=== PATIENT | female | born 1950 | race Caucasian/White ===

== ENCOUNTER → 2018-01-02 07:18 | Outpatient (CLI) | payer MEDICARE, SELFPAY ==
--- NOTE | 2018-01-02 08:30 | BRBX_PTH ---
PATIENT: CLAUDIO EDWARDS LOC: [facility] U#:[id number] AGE/SX: 75/F ROOM: RE01/02/[address]: Dr. Allen Dumont MD : 1950 BED: DIS: SPEC #: [id number] RECD: 01/02/18 11:38 STATUS: SHIRA MOON #: [id number] TAMMY: 01/02/18 08:[address]: Allen Dumont DEPT: SURGICAL PATHOLOGY RECD BY: Allen Min ENTERED: 01/02/18 12:52 SP TYPE: BREAST BX OTHR DR: Dr. Elaina Carvajal MD Tissues: Right breast, NOS Procedures: Surgery Specimen Level IV HEADER OPERATION: Right breast stereotactic needle core biopsy PRE-OP DIAGNOSIS: 11 o?clock microcalcifications TISSUE SUBMITTED: Right breast MICROSCOPIC DIAGNOSIS Right breast, stereotactic needle core biopsy: Fragments of fibroadipose tissue with focal fibrosis and dystrophic calcification. A minute fragment of skin, no pathologic diagnosis. Glandular breast tissue is not identified in the submitted specimen. ÁLVARO:bella 01/03/18 COMMENT Correlation with clinical, radiologic findings and appropriate follow up are necessary. 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 MICROSCOPIC DESCRIPTION Slides are reviewed. GROSS DESCRIPTION Received in fixative is one container labeled with the patient's name and designated right breast. The specimen consists of multiple elongated fragments of spencer-yellow fibroadipose tissue that in aggregate measure 5 x 3 x 0.3 cm. The entire specimen is submitted in two cassettes. / ÁLVARO:bella 01/02/18 TC:5 [facility]: [id number]
--- NOTE | 2018-01-02 08:44 | HP.PCM_ITS ---
History and Physical Date of Admission: 01/02/18 HISTORY AND PHYSICAL - BREAST COMPLAINT ? Avvia English 1950 ? ? REFERRING PHYSICIAN: ~~Elaina Carvajal MD ? CHIEF COMPLAINT: ~~Right breast microcalcifications -11:00-mid depth ? HPI: The patient is a 67 year old female with a complaint of an abnormal mammogram. ~The patient had a mammogram on November 30, 2017~which demonstrated: ? IMPRESSION: SUSPICIOUS FINDING - BIOPSY SHOULD BE CONSIDERED The new grouped heterogeneous calcifications in the right breast are suspicious of malignancy. ?A stereotactic biopsy is recommended. Martinez sharp/lizzette:11/30/2017 11:58:26 Home Mortgage Disclosure Act Specialist: Diana ROBERT)([place]), [facility] letter sent: Abnormal Mammogram BI-RADS: 4 Suspicious finding - Biopsy should be considered Attorney Lawyer: Lizzette Transcribe Date/Time: Nov 11:44A Dictated by: MARTINEZ WHEELER MD This examination was interpreted and the report reviewed and electronically signed by: MARTINEZ WHEELER MD on Nov 11:58AM ?EST * * *Final Report* * * DATE OF EXAM: Nov 11:44AM ? WRW ?~0626 ?- ?[facility] DIAGNOSTIC RT ?/ PROCEDURE REASON: call back right breast / abnormal mammogram ??~?~ * * * * Physician Interpretation * * * * RESULT: #[id number] - [facility] DIAGNOSTIC RT UNILATERAL RIGHT DIGITAL DIAGNOSTIC MAMMOGRAM WITH CAD: 11/30/2017 HISTORY: Callback Right/ Abnormal Mammogram. RESULT: TECHNIQUE: ?The study was acquired using full field digital technology and interpreted from soft copy. Current study was also evaluated with a Computer Aided Detection (CAD). Comparison is made to exams dated: ?11/25/2017 mammogram, 11/18/2016 mammogram - [facility], 11/13/2015 mammogram - [facility], 11/13/2015 mammogram, and 11/05/2014 mammogram - [facility]. There are scattered fibroglandular elements in the right breast. There are new grouped heterogeneous calcifications in the right breast at 11 o'clock middle depth. ?There is a post surgical scar associated with the calcifications. ?~The multiple calcification around the scar have developed since last year. While possibly dystrophic in nature, new calcifications have only recently developed ( nearly 2 years after surgery). No other significant masses or calcifications are seen in the breast. ? ? ~She does~~perform a self breast exam routinely. ~She notes no skin changes. ~ She denies nipple discharge. ~She notes no axillary masses. ~She notes no family history of breast problems. ~ ? She is status post wire localized excisional lumpectomy Mj 2015 for an~ outer mid right breast 10:00 position for preoperatively diagnosed ductal carcinoma in situ for a 2.5cm irregular density on mammogram ?? Final pathology demonstrates ductal carcinoma in situ fibrocystic change with focal intraductal hyperplasia and papillomatosis with atypia. ?Changes with the previous biopsy site. ?The specimen measures 6.5 x 6 x 5 cm. ?The DCIS measured 0.9 x 0.5 cm. ?Grade 2. ?The margins are uninvolved with 0.7 cm from the inferior margin and 0.5 cm from the posterior margin. ?Estrogen receptor positive at greater than 95%. ?Progesterone receptor positive at 43% weak. ?HER- 2/valentin was negative. ? The patient has had 1~pregnancies. ~~Her last mammogram was 2016. ~Her last menstrual period was ?. ~Her first menstrual period was at age 15. ? The patient is being seen by me today at the request of Dr. Woodrufffor my opinion and advice regarding Right breast microcalcifications. ? PAST?MEDICAL?HISTORY PAST MEDICAL HISTORY Diagnosis Date ? Adjustment disorder with depressed mood ? ? Anemia, unspecified ? ? Asymptomatic varicose veins ? ? 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 needs 2 year surveillance ? Benign neoplasm of stomach ? ? Benign neoplasm of stomach ? ? Benign neoplasm of stomach ? ? Breast cancer (HCC) ? ? 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 Diaphragmatic hernia with obstruction ? ? Diaphragmatic hernia without mention of obstruction or gangrene ? ? Diaphragmatic hernia without mention of obstruction or gangrene ? ? Diarrhea ? ? Diverticulosis of colon (without mention of hemorrhage) ? ? Esophageal reflux ? ? Esophagitis, unspecified ? ? Generalized osteoarthrosis, unspecified site ? ? Hypertensive kidney disease, benign ? ? Mitral valve disorders(424.0) ? ? Obesity, unspecified ? ? Osteoporosis, unspecified ? ? PMH - PAST MEDICAL HISTORY OF ? ? back problems due to a fall from ladder ? Symptomatic menopausal or female climacteric states ? ? Unspecified essential hypertension 01/23/2007 ? Unspecified tinnitus 07/26/2007 ? Unspecified vitamin D deficiency 07/26/2007 ? ? PAST?SURGICAL?HISTORY PAST SURGICAL HISTORY Procedure Laterality Date ? BREAST BIOPSY W/STEREOTACTIC GUIDANCE Right 11-25-15 ? COLONOSCOP W/ OR W/O BRSH SPEC ? 09/19/06 ? COLONOSCOP W/ OR W/O BRSH SPEC ? 05/30/2017 ? Colonoscopy ? EGD W/O BRSH SPECIMEN W/BX ? 09/19/06 ? EGD W/O OR W/BRUSH/WASH ? 04/23/2002 ? EGD ? EGD W/O OR W/BRUSH/WASH ? 05/30/2017 ? EGD repeat 2 yrs ? MASTECTOMY, PARTIAL Right 12-24-15 ? PAST SURGICAL HISTORY OF Left 2005 ? FOOT SURGERY ? RAD CLIP LOC W/STEREOTACTIC GUIDANCE Right 12-24-15 ? ? CURRENT?MEDICATIONS ? Current Outpatient Prescriptions: diltiazem CD (CARDIZEM CD) 180 mg 24 hr capsule Take 1 capsule by mouth once daily. May give generic as long as not Cartia XT. Do not substitute with Cartia XT (caused allergic reaction-hives) Disp: 30 capsule Rfl: 1 citalopram (CELEXA) 20 mg tablet Take 1 tablet by mouth once daily. Disp: 90 tablet Rfl: 3 NEXIUM 40 mg capsule Take 1 capsule by mouth once daily. Cancel RX for generic due to lack of efficacy; needs namebrand. Disp: 90 capsule Rfl: 3 Cholecalciferol, Vitamin D3, 5,000 unit cap Take 1 capsule by mouth once daily. Except one day per week skip a pill Disp: Rfl: cetirizine (ZYRTEC) 10 mg tablet Take 1 tablet by mouth once daily as needed for Cold/Allergy Symptoms. Disp: Rfl: CALCIUM 600 + D 600 MG-125 UNIT TAB Take one(1) tablet two(2) times daily. Disp: Rfl: 0 MULTIVITAMIN TAB Take one(1) tablet daily. Disp: Rfl: 0 COMPOUNDED PRESCRIPTION Diltiazem HCL ER CD 180mg capsule ~(do not substitute with Cartia XT--allergic reaction) Disp: 90 capsule Rfl: 3 ? No current facility-administered medications for this visit. ? ALLERGIES: Aciphex [Rabeprazole Sodium]; Diltiazem; Paxil [Paroxetine Hcl] ? PERSONAL HISTORY: SOCIAL?HISTORY Social History ~~Marital status: ~~~~~~~~~~~Spouse name: ~~~~~~~~~~~~~~~~~~ ~~Years of education: ~~~~~~~~~~~~~~~~Number of children: 1 ~~~~~~~~ ? Occupational History Occupation ~~~~~~~~~Employer ~~~~~~~~~~~Comment ~~~~~~~~~~~~ ~~~~~~~~~~~~~~~~~~~~[employer] ~ ? Social History Main Topics ~~Smoking status: Never Smoker ~~~~~~~~~~~~~~~~~~~~~~~~~~~~~~~~~~~~~~~~~~~~~~~~~ ~~~~~~~~ ? ~~Smokeless status: Never Used ~~~~~~~~~~~~~~~~~~~ ~~Alcohol use: Yes ~~~~~~~~ ~~~~~Comment: rare ~~Drug use: No ~~~~~~~~~ ~~Sexual activity: No ~~~~~~~~~~~~~~ ? ? FAMILY HISTORY: FAMILY?HISTORY FAMILY HISTORY Problem Relation Age of Onset ? Cancer Mother ? ? ? lung ? Diabetes Brother ? ? Colon Cancer Brother ? ? Cancer Maternal Grandfather ? ? ? COPD ? Cancer Maternal Grandmother ? ? ? UTERINE CANCER,COPD,OSTEOPROSIS ? Breast Cancer Maternal Aunt ? ? REVIEW OF SYMPTOMS: ~~The review of systems data was entered by the nurse and reviewed by me ? Nursing Notes: John Reynoso LPN ~12/01/2017 ~2:53 PM ~Signed REVIEW OF SYSTEMS: ~~~~~General:~~~The patient denies fatigue, denies weight loss, denies weight gain, denies feeling hot, and denies feelings of cold. ~~~~~Eyes: ~The patient denies glaucoma, denies eye injury/surgery, wears glasses or contacts. ~~~~~Ear/Nose/Throat: ~The patient NOTES allergies, denies hayfever, denies ear infections, and denies bloody noses. ~~~~~Cardiovascular: ~The patient denies chest pain, denies heart disease, NOTES high blood pressure,denies cardiac stent, denies prior heart attack, denies irregular heart beat, denies high cholesterol, ~denies poor circulation, denies heart failure, other cardiac issues, denies claudication, denies cold feet, denies peripheral arterial stent. ~~~~~Respiratory: ~The patient denies tuberculosis, denies pneumonia, denies frequent cough, denies pulmonary embolism, denies shortness of breath, and denies coughing up blood. ~~~~~Gastrointestinal: ~The patient denies difficulty swallowing, NOTES acid reflux, denies ulcers, denies vomiting, denies jaundice/hepatitis, denies gallbladder problems, denies black or tarry stools, NOTES hemorrhoids, denies bleeding from rectum, denies diverticulitis, denies constipation, denies diarrhea, denies loss of stool control, and denies hernias. ~~~~~Kidney/Bladder: ~The patient denies kidney stones, denies urine infections , and denies bloody urine. ~~~~~Skin: ~The patient denies a history of skin cancer, denies bleeding/ changing moles, and denies a history of skin rash. ~~~~~Neurologic: ~The patient denies a history of epilepsy/convulsions, denies headaches, denies head/spinal injuries, and denies stroke/TIA. ~~~~~Psychiatric: ~The patient denies psychiatric medications, denies depression , and denies voices, denies substance abuse. ~~~~~Endocrine: ~The patient denies thyroid disorders, denies diabetes, and denies hormonal problems. ~~~~~Hematologic: ~The patient denies a history of bruising, denies bleeding, and denies anemia, denies blood clots. ~~~~~Infections: ~The patient denies a history of measles and mumps, denies rheumatic fever, and denies sexually transmitted diseases. ~~~~~Musculoskeletal: ~The patient denies back pain/injury, denies back problems , denies sciatica, denies knee/foot trouble, NOTES arthritis, or denies gout. ? ? When was patient's last Mammogram screening? 12/11 ? ~Last Colonoscopy: ~06/09 ? John Reynoso LPN ?? PHYSICAL EXAMINATION: ? General: ~The patient is 67 year old female, well nourished, well hydrated in no acute distress. ~The patient is oriented to time, place, and person. ? VITALS: There were no vitals taken for this visit.~There is no height or weight on file to calculate BMI.~ ? HEENT: ~Normal cephalic, ataumatic, pupils are equally round, sclera are anicteric, mucous membranes are moist, oropharynx is clear. ~Neck has no masses , asymmetry or lymphadenopathy. ~Thyroid is unremarkable. ? Respiratory: ~Clear to auscultation and percussion. ~Normal respiratory excursion and pattern. ? Cardiac: ~Examination is regular rate and rhythm. ? Abdominal exam: ~Soft, nontender, ~with no palpable masses. ~No hepatosplenomegaly. ~No palpable hernias. ? Rectal exam: ~exam deferred Extremities: ~no clubbing, cyanosis or edema. ~No adenopathy. ? Breast: ~Visual inspection reveals no retractions, nipple inversion, or skin changes. ~Palpation of the right breast reveals no dominant or suspicious masses. ~Palpation of the left breast reveals no dominant or suspicious masses. ~Axillary exam demonstrates no suspicious masses in either the left or right axilla. ~There is no nipple discharge expressed from either the left or right breast. ? LABORATORY VALUES: As Noted ? RADIOLOGIC STUDIES: ~As Noted ? Assessment ~ IMPRESSION: Right breast microcalcifications ? PLAN: ~I plan to perform a stereotactic biopsy of the right breast. ~The planned surgical procedure was discussed extensively with the patient. ~The risks, benefits, anticipated outcomes and possible complications were mentioned. ~My staff has also explained the procedure in understandable terms and the patient was given the option to take printed material concerning the planned procedure. ~The patient had the opportunity to ask questions concerning the planned procedure. ~The patient freely consents to the planned procedure. ~~ ~ ? Her procedure is scheduled for January 02, 2018 ? Diagnoses: (R92.0) Breast microcalcifications ~(primary encounter diagnosis) ? My findings have been communicated to Dr. GrayElaina Carvajal MD~via shared medical record. ~This note will be forwarded to Dr. Elaina Carvajal MD. ? ?? Return to Clinic: The patient is instructed to follow-up with me after the testing has been completed. ? Allen Dumont MD
--- NOTE | 2018-01-02 08:46 | OP.PCM_ITS ---
Report of Operation Date of Procedure: 01/02/18 Pre-Operative Diagnosis: right breast microcalcifications Post-Operative Diagnosis: right breast microcalcifications - successful biopsy Surgery/Procedure Performed:: Right stereotactic biopsy with specimen radiograph and gel marker placement flooring machine operator: None Type of Anesthesia:: Local Specimen's removed: right breast Description of Procedure: The patient was brought to the stereotactic suite and informed of the plan course of events. The right breast was positioned in the true lateral to medial position on the Clark stereotactic table. Mammographic image demonstrated the area of abnormality to be located in the center of the radiograph. Stereotactic images were then obtained which demonstrated good positioning of the abnormality for biopsy with good stroke eleanor parameters. The breast was cleaned with Betadine area did one percent lidocaine was used to anesthetize the skin and a small stab incision made. An 8-gauge mammotome needle was placed into the pre-fire position. Stereotactic images demonstrated good positioning around the planned biopsy site. Local anesthetic injected deeply in the breast. The needle was deployed. Post deployment images demonstrated good positioning of the planned biopsy site. Multiple vacuum- assisted samples were obtained and [id number] fashion. Specimen radiograph demonstrated micro-calcifications in the sample. A gel marker clip was deployed. Post biopsy images demonstrated good position of the clip relative the biopsy cavity. The breast was removed from compression. Steri- Strips and a dressing applied. Post procedure mammogram images were obtained.
== END ==
PROVIDERS: Family Provider Internal Medicine; PCP Internal Medicine; Visit Provider Surgery
DX: R92.0 Mammographic microcalcification found on diagnostic imaging of breast (principal); K21.0 Gastro-esophageal reflux disease with esophagitis; K22.70 Barrett's esophagus without dysplasia; M81.0 Age-related osteoporosis without current pathological fracture; I05.9 Rheumatic mitral valve disease, unspecified; F43.21 Adjustment disorder with depressed mood; Z85.3 Personal history of malignant neoplasm of breast; Z90.11 Acquired absence of right breast and nipple; E66.9 Obesity, unspecified; Z79.899 Other long term (current) drug therapy
CPT/HCPCS: 19081; 88305; J7050

== ENCOUNTER 2023-01-31 08:32 | Day surgery (SDC) | payer MEDICARE, SELFPAY ==
--- NOTE | 2023-01-31 | ESO_PTH ---
PATIENT: CLAUDIO EDWARDS LOC: [facility] U#:[id number] AGE/SX: 72/F ROOM: RE01/31/[address]: Dr. Matt Pope DO : 1950 BED: DIS: 01/31/2023 SPEC #: [id number] RECD: 01/31/23 12:57 STATUS: SHIRA MOON #: [id number] TAMMY: 01/31/23 00:[address]: Matt Pope DEPT: SURGICAL PATHOLOGY RECD BY: Dale Moran ENTERED: 01/31/23 12:58 SP TYPE: MARGRET LOPEZ DR: Dr. Elaina Carvajal MD Tissues: A - Esophagus, NOS B - Transverse colon C - COLON BIOPSY D - Sigmoid colon biopsy Procedures: Special Stain Group II Surgery Specimen Level IV Alcian Blue/PAS (control) HEADER OPERATION: Colonoscopy, EGD ([facility]), biopsy PRE-OP DIAGNOSIS: GERD, colon polyps, Marin?s esophagus TISSUE SUBMITTED: A ? Distal esophagus biopsy, B ? Transverse polyp biopsy, C ? Hepatic flexure polyp biopsy, D ? Sigmoid polyp biopsy MICROSCOPIC DIAGNOSIS A. Distal esophagus, biopsy: Chronic inflammation. Goblet cell metaplasia consistent with Marin's esophagus. No evidence of dysplasia. See comment. B. Transverse colon polyp, biopsy: Tubular adenoma. C. Colonic polyp at hepatic flexure, biopsy: Tubular adenoma. D. Sigmoid colon, biopsy: Polypoid fragment of benign colonic mucosa. See comment. AM:bella 02/01/2023 COMMENT A. Immunohistochemistry ([id number]) for P53 and Ki-67 will be performed and results will be reported separately. Alcian blue/PAS stain with matched control supports the above diagnosis. D. Neither hyperplastic nor adenomatous change is identified. Clinical correlation is suggested. MICROSCOPIC DESCRIPTION Slides are reviewed. GROSS DESCRIPTION A - Received in fixative is one container labeled with the patient's name and designated distal esophagus biopsy. The specimen consists of multiple irregular fragments of light spencer soft tissue that in aggregate measure 1.2 x 0.3 x 0.1 cm. The specimen is totally submitted in one cassette. B - Received in fixative is one container labeled with the patient's name and designated transverse polyp biopsy. The specimen consists of one irregular fragment of light spencer soft tissue that measures 0.3 x 0.3 x 0.1 cm. The specimen is totally submitted in one cassette. C - Received in fixative is one container labeled with the patient's name and designated hepatic flexure polyp biopsy. The specimen consists of one irregular fragment of light spencer soft tissue that measures 0.3 x 0.2 x 0.1 cm. The specimen is totally submitted in one cassette. D - Received in fixative is one container labeled with the patient's name and designated sigmoid polyp biopsy. The specimen consists of one irregular fragment of light spencer soft tissue that measures 0.3 x 0.3 x 0.1 cm. The specimen is totally submitted in one cassette. / SJ:rg 01/31/2023 TC:3 CPT: 12140 x4, 42371
--- NOTE | 2023-01-31 | IMM_PTH ---
PATIENT: CLAUDIO EDWARDS LOC: EN U#:[id number] AGE/SX: 72/F ROOM: RE01/31/[address]: Dr. Matt Pope DO : 1950 BED: DIS: 01/31/2023 SPEC #: [id number] RECD: 02/01/23 14:00 STATUS: SHIRA MOON #: [id number] TAMMY: 01/31/23 00:[address]: Matt Pope DEPT: IMMUNOHISTOCHEMISTRY RECD BY: Mckenzie Mccall ENTERED: 02/01/23 14:01 SP TYPE: IMMUNO OTHR DR: Dr. Elaina Carvajal MD Tissues: A - Esophageal mucous membrane Procedures: P53 (initial) KI-67 (add) PHYSICIAN & INSTITUTION [place] [id number] SPECIMEN INFORMATION: Tissue Source: A ? Distal esophagus biopsy Clinical Info: GERD, colon polyps, Marin?s esophagus Specimen Number: [id number] CPT code: 65813, 16312 METHODOLOGY: Deparaffinized sections of prefer/formalin-fixed tissue or PAP/DQ stained slides are incubated with monoclonal/polyclonal antibodies/oligonucleotide probes. Localization is made via biotin free immunoperoxidase method. Appropriate controls are performed and reacted as expected. Results on target cell population are indicated in the following table: RESULTS: ANTIBODY / CLONE RESULT Block A P53 (DO-7) positive, wild-type pattern Ki-67 (30-9) positive, low These tests were developed and their performance characteristics determined by [facility]. They may not have been cleared or approved by the U.S. Food and Drug Administration. The FDA has determined that such clearance or approval is not necessary. The above immunohistochemical/dualISH markers are ordered and reviewed by the Pathologist. INTERPRETATION: A. Distal esophagus, biopsy: No evidence of dysplasia. AM:bella 02/02/2023
[2023-01-31 09:06] VITALS: BP 148/61; PULSE 83; RESP 18; TEMP 37.3; O2SAT 96; BMI 30.4
[2023-01-31] MEDS: Lactated Ringers 1,000 ML 15 ML IV (09:06)
--- NOTE | 2023-01-31 09:32 | PCM.HP.BLA ---
History and Physical Date of Admission: 01/31/23 72 F who presents to the office today to establish with GI for GERD, Marin's esophagus, colon polyps. She would like to schedule EGD and colonoscopy.? Last endoscopy was 2016.? Long hx of heartburn.? She takes esomeprazole 40 mg daily.? PPI mostly controls her GERD symptoms however she does sometimes still have heartburn when reclining.? She sleeps on a wedge.? She has a history of Marin's esophagus, hiatal hernia, gastric polyps.? She also has a history of colon polyps. She does not have any dysphagia.? No nausea or vomiting.? No abdominal pain.? Her bowels are regular, BM daily.? No melena or hematochezia.? She does have some hemorrhoids. Past medical history includes anemia, breast cancer, diverticulosis of colon, hypertension, hypertensive kidney disease, mitral valve disorder, obesity, OA, osteoporosis, vitamin D deficiency ROS Const Constitutional: No fatigue ENT ENT: Positive for difficulty swallowing Gastro GI: Positive for heartburn and difficulty swallowing; No abdominal pain, belching, bloating, change in bowel habits, change in stool character, coffee ground emesis, constipation, cramping, diarrhea, feeling full early, excessive flatus, incontinent of stools, Vomiting blood/hematemesis, Blood in stool, loose stools, Black,tarry stools, nausea/dyspepsia, pain with swallowing, vomiting or other Musc Musculoskeletal: No joint pain Skin Skin: No yellowing of the eye or itchy eyes Psych Psychiatric: No anxiety and No depression Endo Endocrine: No fatigue Aller/Imm Allergy/Immunologic: No itchy eyes Niraj/Lymp Hematologic/Lymphatic: No easy bleeding or easy bruising Exam Const General: cooperative and comfortable Nutritional Appearance: obese Orientation: alert, awake and oriented x3 HENMT Head: normal to inspection Eyes Sclera: sclerae normal Neck Neck: normal visual inspection Chest Chest palpation & inspection: normal inspection of the chest Resp Effort & Inspection: normal respiratory effort GI Inspection: obesity Palpation: soft, no hepatosplenomegaly, no masses and nontender Skin General: no rashes or lesions noted Neuro Speech: speech normal Gait: normal gait Psych Mood: euthymic mood Quality Reporting Tobacco Screening ([facility]) Smoking Status: Unknown if ever smoked Assessment and Plan Assessment and Plan (1) GERD (gastroesophageal reflux disease): ?Status:?Chronic ?Plan: 72-year-old female with GERD, history of Marin's esophagus, history of colon polyps Last endoscopies were in 2017 Continue PPI therapy She will be scheduled for EGD to evaluate for esophagitis, Marin's esophagus, malignancy, and will also have colonoscopy considering history of colon polyps Office follow-up 2 weeks after endoscopies to review biopsy results (2) Colon polyps: ?Status:?Chronic ?Plan: See above (3) Barretts esophagus: ?Status:?Chronic ?Plan: See above ? ? ? Medications: Discontinued hydrocodone-acetaminophen 5-325 mg ?? Discontinued Reason:? Pt no longer taking 1 - 2 tabs (1 - 2 x 5-325 mg) PO Q4H PRN PRN 20 TABLETS 0RF Pain ? ? I have examined the patient and the H&P has been reviewed. There are no clinical changes since date of exam.
[2023-01-31 10:10] VITALS: BP 122/58; BP 148/61; PULSE 66; RESP 16; TEMP 37.3; O2SAT 99
[2023-01-31 10:15] VITALS: BP 112/54; BP 148/61; PULSE 64; RESP 16; O2SAT 96
--- NOTE | 2023-01-31 10:16 | OP.EGD_ITS ---
Patient Name: Aviva English Procedure Date: 01/31/2023 9:37 AM Date of : 1950 Age: 72 Procedure: Upper GI endoscopy Indications: Marin's esophagus Providers: Matt Pope DO Referring MD: Matt Pope DO Medicines: Monitored Anesthesia Care Patient Profile: This is a 72 year old female. Refer to note in patient chart for documentation of history and physical. Patient has symptoms of chronic heartburn. Complications: No immediate complications. Procedure: Pre-Anesthesia Assessment: - Prior to the procedure, a History and Physical was performed, and patient medications and allergies were reviewed. The risks and benefits of the procedure and the sedation options and risks were discussed with the patient. All questions were answered and informed consent was obtained. Patient identification and proposed procedure were verified by the physician in the pre-procedure area. Mental Status Examination: alert and oriented. Airway Examination: normal oropharyngeal airway and neck mobility. Respiratory Examination: clear to auscultation. CV Examination: normal. Prophylactic Antibiotics: The patient does not require prophylactic antibiotics. Prior Anticoagulants: The patient has taken no previous anticoagulant or antiplatelet agents. After reviewing the risks and benefits, the patient was deemed in satisfactory condition to undergo the procedure. The anesthesia plan was to use monitored anesthesia care (MAC). Immediately prior to administration of medications, the patient was re-assessed for adequacy to receive sedatives. The heart rate, respiratory rate, oxygen saturations, blood pressure, adequacy of pulmonary ventilation, and response to care were monitored throughout the procedure. The physical status of the patient was re-assessed after the procedure. After obtaining informed consent, the endoscope was passed under direct vision. Throughout the procedure, the patient's blood pressure, pulse, and oxygen saturations were monitored continuously. The pediatric colonoscope was introduced through the mouth, and advanced to the second part of duodenum. The upper GI endoscopy was accomplished without difficulty. The patient tolerated the procedure well. Scope In: 9:44:29 AM Scope Out: 9:51:03 AM Total Procedure Duration Time 0 hours 6 minutes 34 seconds Findings: The Z-line was found 38 cm from the incisors. Biopsies were taken with a cold forceps for histology. Verification of patient identification for the specimen was done. Estimated blood loss was minimal. A large hiatal hernia was present. Multiple large pedunculated and sessile polyps with no bleeding and no stigmata of recent bleeding were found in the entire examined stomach. The second portion of the duodenum was normal. Impression: - Z-line, 38 cm from the incisors. Biopsied. - Large hiatal hernia. - Multiple gastric polyps. - Normal second portion of the duodenum. Recommendation: - Discharge patient to home. - Advance diet as tolerated. - Continue present medications. - Await pathology results. - Repeat upper endoscopy in 1 year for surveillance based on pathology results. Procedure Code(s): --- Professional --- 22742, Esophagogastroduodenoscopy, flexible, transoral; with biopsy, single or multiple CPT copyright 2017 [employer]. All rights reserved. The codes documented in this report are preliminary and upon contract admin review may be revised to meet current compliance requirements. Matt Pope DO 01/31/2023 10:15:20 AM This report has been signed electronically. Number of Addenda: 0 Note Initiated On: 01/31/2023 9:37 AM
--- NOTE | 2023-01-31 10:17 | OP.CCLET_ITS ---
01/31/2023 Elaina Carvajal [address] [place] [address] Re : Upper GI endoscopy procedure for Aviva English Dear Dr. Carvajal This procedure was performed on Tuesday, January 31, 2023. My impressions and recommendations are as follows: Impressions : - Z-line, 38 cm from the incisors. Biopsied. - Large hiatal hernia. - Multiple gastric polyps. - Normal second portion of the duodenum. Recommendations : - Discharge patient to home. - Advance diet as tolerated. - Continue present medications. - Await pathology results. - Repeat upper endoscopy in 1 year for surveillance based on pathology results. My findings are described in the full procedure note, which is enclosed. If I can be of further assistance, please feel free to contact me at . Sincerely, Matt Pope, 01/31/2023 10:15:20 AM This report has been signed electronically.
[2023-01-31 10:20] VITALS: BP 119/61; BP 148/61; PULSE 68; RESP 16; O2SAT 100
--- NOTE | 2023-01-31 10:21 | OP.COLON_ITS ---
Patient Name: Aviva English Procedure Date: 01/31/2023 9:51 AM Date of : 1950 Age: 72 Procedure: Colonoscopy Indications: High risk colon cancer surveillance: Personal history of colonic polyps Providers: Matt Pope DO Referring MD: Matt Pope DO Medicines: Monitored Anesthesia Care Patient Profile: This is a 72 year old female. Refer to note in patient chart for documentation of history and physical. Patient has symptoms of chronic heartburn. Last Colonoscopy: 5 years ago. Complications: No immediate complications. Procedure: Pre-Anesthesia Assessment: - Prior to the procedure, a History and Physical was performed, and patient medications and allergies were reviewed. The risks and benefits of the procedure and the sedation options and risks were discussed with the patient. All questions were answered and informed consent was obtained. Patient identification and proposed procedure were verified by the physician in the pre-procedure area. Mental Status Examination: alert and oriented. Airway Examination: normal oropharyngeal airway and neck mobility. Respiratory Examination: clear to auscultation. CV Examination: normal. Prophylactic Antibiotics: The patient does not require prophylactic antibiotics. Prior Anticoagulants: The patient has taken no previous anticoagulant or antiplatelet agents. After reviewing the risks and benefits, the patient was deemed in satisfactory condition to undergo the procedure. The anesthesia plan was to use monitored anesthesia care (MAC). Immediately prior to administration of medications, the patient was re-assessed for adequacy to receive sedatives. The heart rate, respiratory rate, oxygen saturations, blood pressure, adequacy of pulmonary ventilation, and response to care were monitored throughout the procedure. The physical status of the patient was re-assessed after the procedure. After I obtained informed consent, the scope was passed under direct vision. Throughout the procedure, the patient's blood pressure, pulse, and oxygen saturations were monitored continuously. The pediatric colonoscope was introduced through the anus and advanced to the cecum, identified by appendiceal orifice and ileocecal valve. The colonoscopy was performed without difficulty. The patient tolerated the procedure well. The quality of the bowel preparation was adequate. Scope In: 9:53:11 AM Scope Withdrawal Time 0 hours 7 minutes 15 seconds Scope Out: 10:05:14 AM Total Procedure Duration Time 0 hours 12 minutes 3 seconds Findings: Multiple small and large-mouthed diverticula were found in the recto-sigmoid colon, sigmoid colon, descending colon, transverse colon and ascending colon. Three sessile polyps were found in the sigmoid colon, transverse colon and hepatic flexure. The polyps were 1 to 2 mm in size. These polyps were removed with a jumbo cold forceps. Resection and retrieval were complete. Verification of patient identification for the specimen was done. Estimated blood loss was minimal. Impression: - Diverticulosis in the recto-sigmoid colon, in the sigmoid colon, in the descending colon, in the transverse colon and in the ascending colon. - Three 1 to 2 mm polyps in the sigmoid colon, in the transverse colon and at the hepatic flexure, removed with a jumbo cold forceps. Resected and retrieved. Recommendation: - Repeat colonoscopy in 3 years for surveillance. - Continue present medications. Procedure Code(s): --- Professional --- 38987, Colonoscopy, flexible; with biopsy, single or multiple CPT copyright 2017 [employer]. All rights reserved. The codes documented in this report are preliminary and upon panelbeater review may be revised to meet current compliance requirements. Matt Pope DO 01/31/2023 10:20:25 AM This report has been signed electronically. Number of Addenda: 0 Note Initiated On: 01/31/2023 9:51 AM
--- NOTE | 2023-01-31 10:21 | OP.CCLET_ITS ---
01/31/2023 Elaina Carvajal [address] [place] [address] Re : Colonoscopy procedure for Aviva English Dear Dr. Carvajal This procedure was performed on Tuesday, January 31, 2023. My impressions and recommendations are as follows: Impressions : - Diverticulosis in the recto-sigmoid colon, in the sigmoid colon, in the descending colon, in the transverse colon and in the ascending colon. - Three 1 to 2 mm polyps in the sigmoid colon, in the transverse colon and at the hepatic flexure, removed with a jumbo cold forceps. Resected and retrieved. Recommendations : - Repeat colonoscopy in 3 years for surveillance. - Continue present medications. My findings are described in the full procedure note, which is enclosed. If I can be of further assistance, please feel free to contact me at . Sincerely, Matt Pope, 01/31/2023 10:20:25 AM This report has been signed electronically.
[2023-01-31 10:25] VITALS: BP 119/60; BP 148/61; PULSE 66; RESP 16; TEMP 37; O2SAT 96
[2023-01-31 10:45] VITALS: BP 148/61
== END 2023-01-31 11:18 | disposition home or self-care (01) ==
LOC: EN 08:32 → AC 08:34
PROVIDERS: PCP Internal Medicine; Referring Provider Internal Medicine Gastroenterology; Visit Provider Internal Medicine Gastroenterology
PROC: 0DJD8ZZ Inspection of Lower Intestinal Tract, Via Natural or Artificial Opening Endoscopic (ICD-10-PCS; CPT 45378; principal; 2023-01-31 09:40)
DX: D12.3 Benign neoplasm of transverse colon (principal); K57.30 Diverticulosis of large intestine without perforation or abscess without bleeding; K44.9 Diaphragmatic hernia without obstruction or gangrene; K31.7 Polyp of stomach and duodenum; K22.70 Barrett's esophagus without dysplasia; E66.9 Obesity, unspecified; I12.9 Hypertensive chronic kidney disease with stage 1 through stage 4 chronic kidney disease, or unspecified chronic kidney disease; N18.9 Chronic kidney disease, unspecified; E55.9 Vitamin D deficiency, unspecified; Z79.899 Other long term (current) drug therapy; Z86.010 Personal history of colon polyps
CPT/HCPCS: 45380; 43239; 88305; 88313; 88341; 88342; J7120; J2405

== ENCOUNTER 2024-07-10 11:28 | Day surgery (SDC) | payer MEDICARE, SELFPAY ==
[2024-07-10] VITALS (10 sets, daily range): BP systolic 111–148; BP diastolic 55–80; PULSE 60–85; RESP 16–18; TEMP 36.6–36.9; O2SAT 97–100; BMI 32.2
--- NOTE | 2024-07-10 | IMM_PTH ---
PATIENT: CLAUDIO EDWARDS LOC: EN U#:[id number] AGE/SX: 74/F ROOM: RE07/10/[address]: Dr. Matt Pope DO : 1950 BED: DIS: 07/10/2024 SPEC #: [id number] RECD: 07/12/24 11:16 STATUS: SHIRA REQ #: [id number] TAMMY: 07/10/24 00:[address]: Matt Pope DEPT: IMMUNOHISTOCHEMISTRY RECD BY: Bob Callahan ENTERED: 07/12/24 11:16 SP TYPE: IMMUNO OT DR: Dr. Elaina Carvajal MD Tissues: A - Esophagus, NOS Procedures: P53 (initial) KI-67 (add) PHYSICIAN & INSTITUTION [place] [address] SPECIMEN INFORMATION: Tissue Source: A- Distal esophagus biopsy Clinical Info: Marin's esophagus, GERD, family history of polyps Specimen Number: [id number] CPT code: 87543,38751 METHODOLOGY: Deparaffinized sections of prefer/formalin-fixed tissue or PAP/DQ stained slides are incubated with monoclonal/polyclonal antibodies/oligonucleotide probes. Localization is made via biotin free immunoperoxidase method. Appropriate controls are performed and reacted as expected. Results on target cell population are indicated in the following table: RESULTS: ANTIBODY / CLONE RESULT Block A P53 (DO-7) positive, wild type Ki-67 (30-9) positive, moderate These tests were developed and their performance characteristics determined by [facility]. They may not have been cleared or approved by the U.S. Food and Drug Administration. The FDA has determined that such clearance or approval is not necessary. The above immunohistochemical/dualISH markers are ordered and reviewed by the Pathologist. INTERPRETATION: A. Distal esophagus, biopsy: No evidence of dysplasia. AM. 07/13/2024
[2024-07-10] MEDS: Lactated Ringers 1,000 ML 15 ML IV (12:17)
--- NOTE | 2024-07-10 12:30 | COLBX_PTH ---
PATIENT: CLAUDIO EDWARDS LOC: EN U#:[id number] AGE/SX: 74/F ROOM: RE07/10/[address]: Dr. Matt Pope DO : 1950 BED: DIS: 07/10/2024 SPEC #: [id number] RECD: 07/10/24 17:57 STATUS: SHIRA LAIRDSegun #: [id number] TAMMY: 07/10/24 12:[address]: Matt Pope DEPT: SURGICAL PATHOLOGY RECD BY: Eriberto Owens ENTERED: 07/11/24 14:02 SP TYPE: COLON BX OTHR DR: Dr. Elaina Carvajal MD Tissues: A - Esophagus, NOS B - Ascending colon Procedures: Special Stain Group I Surgery Specimen Level IV Alcian Blue/PAS (control) HEADER OPERATION: Colonoscopy with biopsies, EGD with biopsies PRE-OP DIAGNOSIS: Marin's esophagus, GERD, family history of polyps TISSUE SUBMITTED: A- Distal esophagus biopsy, B- Ascending colon polyp biopsy MICROSCOPIC DIAGNOSIS A. Distal esophagus, biopsy: Gastroesophageal junction with mild chronic inflammation. Goblet cell metaplasia consistent with Marin's esophagus. No evidence of dysplasia. Focal changes of reflux. See comment. B. Ascending colon polyp, biopsy: Tubular adenoma. ELENABlanca 07/12/2024 COMMENT A. Alcian blue/PAS stain with matched control is used in the evaluation of the specimen. Immunohistochemistry ([id number]) for P53 and Ki-67 will be performed and results will be reported separately. MICROSCOPIC DESCRIPTION Slides are reviewed. GROSS DESCRIPTION A. Received in fixative is one container labeled with the patient's name and designated Distal esophagus biopsy. The specimen consists of two irregular fragments of light spencer soft tissue that in aggregate measure 0.6 x 0.3 x 0.1 cm. The specimen is totally submitted in one cassette. B. Received in fixative is one container labeled with the patient's name and designated Ascending colon polyp biopsy. The specimen consists of one irregular fragment of light spencer soft tissue that measures 0.3 x 0.3 x 0.1 cm. The specimen is totally submitted in one cassette. SJBlancamr 07/11/2024 TC:3 CPT:10977c4,35365
--- NOTE | 2024-07-10 12:51 | PRE.ANES_ITS ---
ASA Classification* ASA Classification ASA Classification: 2 Assessment & Plan Anesthesia* Anesthesia Assessment Anesthesia Assessment: Discussed sedation and/or anesthesia options, risks, benefits, and alternatives with patient/parents/legal guardian/POA. Questions invited. The patient/parents/legal guardian/POA seems to understand and agrees to proceed with anesthesia plan. Reviewed the physical assessment, medical history, allergy history and patient home medications list prior to surgery/procedure/anesthetic and documented any changes. Performed airway and anesthesia risk assessments. Anesthesia Type Anesthesia Type: MAC History Source History Obtained from:: Patient and Chart Anesthesia Focused Assessment* Temperature: 97.8 F Pulse Rate: 85 Blood Pressure: 148/63 Respiratory Rate: 18 Pulse Ox: 97 Oxygen Delivery Method: Room Air Airway Assessment Mouth opens: 2 cm Mallampati Score: IV Teeth Condition: Dentures (Patient has top and bottom full dentures.) Neck Range of motion (ROM): Limited ROM (Slight decrease in extension) Focused Labs Anesthesia Preop lab: CBC WBC 5.3 K/mm3 (4.4-11.0) 02/19/16 10:24 RBC 4.29 M/mm3 (4.2-5.4) 02/19/16 10:24 Hgb 13.0 g/dl (12.0-15.0) 02/19/16 10:24 Hct 40.4 % (37-47) 02/19/16 10:24 Plt Count 173 K/mm3 (150-450) 02/19/16 10:24 CHEMISTRY Potassium 4.1 mmol/L (3.5-5.1) 02/19/16 10:24 Sodium 143 mmol/L (136-145) 02/19/16 10:24 BUN 16 mg/dL (7-18) 02/19/16 10:24 Creatinine 0.86 mg/dL (0.55-1.20) 02/19/16 10:24 Glucose 110 mg/dL (70-110) 02/19/16 10:24 COAG Pre-Assessment Diagnosis/Proposed Procedure Planned Operative Procedure(s): COLONOSCOPY, EGD Anesthesia History 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 When Was Last Pacemaker Check QUESTION #4 FULL TEXT: You/Your Family Experience fever (hyperthermia) with Anesthesia Last Oral Intake Last Oral intake: Last Oral Intake NPO since 06:00 07/10/24 12:09 Meds taken in AM with sips of Yes 07/10/24 12:09 water? 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 Female Yes 07/09/24 11:00 HX of Motion Sickness No 07/09/24 11:00 HX of N/V After Surgery No 07/09/24 11:00 Non-Smoker Yes 07/09/24 11:00 Duration of Surgery greater No 07/09/24 11:00 than 60 minutes Number of Risk Factors 2 07/09/24 11:00 PONV Score Moderate Risk 07/09/24 11:00 Height & Weight Height & Weight: Anesthesia: Height & Weight Height 5 ft 07/10/24 12:09 Weight: 74.8 kg 07/10/24 12:09 Body Mass Index (BMI) 32.2 07/10/24 12:09 Respiratory Assessment Respiratory Assessment - adjunct faculty instructor: Respiratory Tract Infection Hx - adjunct faculty instructor Hx Respiratory Tract Infection No 07/09/24 11:00 STOP Sleep Apnea STOP Sleep Apnea - adjunct faculty instructor: STOP Sleep Apnea - adjunct faculty instructor Hx Hypertension Yes: CONTROLLED WITH MED 07/09/24 11:00 Hx Sleep Apnea No 07/09/24 11:00 CPAP BIPAP Do you snore loudly (louder No 07/09/24 11:00 than talking or can be heard Do you often feel tired/ No 07/09/24 11:00 fatigued/ sleepy during daytime? Has anyone observed you stop No 07/09/24 11:00 breathing during sleep? STOP Results Negative 07/09/24 11:00 QUESTION #5 FULL TEXT : Do you snore loudly (louder than talking or can be heard through closed doors)? 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 Specify any problems Hx of Preganancy in last 3 No 07/09/24 11:00 Months Nurse Filling Out Transfusion VCHRISTIN 07/09/24 11:00 & Questions: Date: 07/09/24 07/09/24 11:00 Time: 11:01 07/09/24 11:00 Patient unable to answer at this time (ie. confused, unrespo /Reproduction History /Reproductive History - adjunct faculty instructor: /Reproductive Hx- adjunct faculty instructor Hx Now Gestational Age (in weeks): EDC: Hx Hx Para Hx Section SAB No 07/09/24 11:00 Active Medications Active Medications: Current Medications Generic Name Dose Route Start Last Admin Trade Name Freq PRN Reason Stop Dose Admin Lactated Ringer's 1,000 mls @ 15 mls/hr 07/10/24 11:45 07/10/24 12:17 IV 15 mls/hr .Q48H DIANE Administration PFSH Medical History Tinnitus Cataract Wears dentures Anxiety Arthritis History of hiatal hernia Non-smoker HTN (hypertension) Vitamin D deficiency Osteoporosis Obesity Mitral valve disorder Hypertensive kidney disease Osteoarthritis Esophagitis GERD (gastroesophageal reflux disease) Diverticulosis of colon Diarrhea Diaphragmatic hernia without obstruction and without gangrene DCIS (ductal carcinoma in situ) Breast cancer Benign neoplasm of stomach Barretts esophagus Anemia Home Medications ?Medication ?Instructions ?Recorded ?Last Taken ?Type calcium carbonate 600 mg-vitamin 1 ea PO DAILY 12/18/15 Unknown History D3 10 mcg (400 unit) tablet cetirizine 10 mg capsule (Zyrtec) 10 mg PO PRN PRN RUNNY NOSE 12/18/15 Unknown History cholecalciferol (vitamin D3) 25 4,000 unit PO DAILY 12/18/15 Unknown History mcg (1,000 unit) tablet (Vitamin D3) diltiazem HCl 180 mg 180 mg PO DAILY 12/18/15 07/10/24 07:00 History capsule,extended release 24 hr esomeprazole magnesium 40 mg 40 mg PO DAILY 12/18/15 07/10/24 07:00 History capsule,delayed release (Nexium) multivitamin (Daily Multiple 1 ea PO DAILY 12/18/15 Unknown History tablet) citalopram 20 mg tablet (Celexa) 20 mg PO DAILY 09/17/22 Unknown History diphenhydramine HCl 25 mg tablet 25 mg PO QHS PRN Sleep 09/17/22 Unknown History (Sominex) ascorbic acid (vitamin C) 500 mg 500 mg PO DAILY 07/09/24 Unknown History tablet (C-500) Allergy/AdvReac Type Severity Reaction Status Date / Time contact metal agent Allergy Severe Other Verified 07/10/24 12:06 adhesive tape Allergy Rash Verified 07/10/24 12:06 doxazosin mesylate (From Allergy Itching Verified 07/10/24 12:06 Cardura) paroxetine HCl (From Paxil) Allergy Itching Verified 07/10/24 12:06 nickel AdvReac Itching Verified 07/10/24 12:06 Surgical History (Updated 07/10/24 @ 12:[address] Samson Dennison MD) Status post right breast lumpectomy Hx of colonoscopy Social History Smoking Status: Never smoker Review of Systems (Anesthesia) ROS Narrative System reviewed and no additional complaints, except as documented.
--- NOTE | 2024-07-10 12:55 | PCM.HP.BLA ---
History and Physical Date of Admission: 07/10/24 CLAUDIO EDWARDS, is a 74 F who presents to the office today for follow up. EGD and Colonoscopy 01.31.23 EGD Z-line, 38 cm from the incisors. Biopsied. Large hiatal hernia. Multiple gastric polyps. Normal second portion of the duodenum. Colonoscopy Diverticulosis in the recto-sigmoid colon, in the sigmoid colon, in the descending colon, in the transverse colon and in the ascending colon. Three 1 to 2 mm polyps in the sigmoid colon, in the transverse colon and at the hepatic flexure, removed with a jumbo cold forceps. Resected and retrieved. OV 06.22.24 pt reports that she is feeling well overall, does note some difficulty swallowing and feeling like food is getting stuck in her throat. Pt reports that she has either a hemorrhoid or a growth right by her rectum and concerned about this. Pt reports that she is due for her yearly EGD. ROS Const Constitutional: Positive for fatigue; No fever(s) or weight change ENT ENT: Positive for difficulty swallowing Gastro GI: Positive for bloating, difficulty swallowing and excessive flatus; No abdominal pain, belching, change in bowel habits, change in stool character, coffee ground emesis, constipation, cramping, diarrhea, heartburn, feeling full early, incontinent of stools, Vomiting blood/hematemesis, Blood in stool, loose stools, Black,tarry stools, nausea/dyspepsia, pain with swallowing, vomiting or other Musc Musculoskeletal: Positive for joint pain, back pain, muscle cramps, numbness, stiffness, tingling, Arthritis and restless legs Skin Skin: No yellowing of the eye or itchy eyes Neuro Neurology: Positive for numbness, tingling and restless legs Psych Psychiatric: No anxiety and Positive for depression Endo Endocrine: Positive for fatigue; No weight change Aller/Imm Allergy/Immunologic: No itchy eyes Niraj/Lymp Hematologic/Lymphatic: Positive for easy bruising; No easy bleeding Exam Const General: cooperative and comfortable Nutritional Appearance: overweight Orientation: alert, awake and oriented x3 Assessment and Plan Assessment and Plan (1) Barretts esophagus: Status: Chronic Plan: We discussed EGD and colonoscopy findings. Still has Marin's, no dysplasia. She has a large hiatal hernia. Continue esomeprazole 40 mg daily. Continue to sleep with HOB elevated, avoid large meals, don't recline after eating, avoid trigger foods. Repeat EGD. (2) GERD (gastroesophageal reflux disease): Status: Chronic Plan: see above (3) Colon polyps: Status: Chronic Plan: Tubular adenomas, next colonoscopy in 3 yrs (4) lower GI bleeding from hemorrhoidal disease -She will undergo colonoscopy with hemorrhoid banding and surveillance colonoscopy due to her history of multiple polyps. I have examined the patient and the H&P has been reviewed. There are no clinical changes since date of exam.
--- NOTE | 2024-07-10 13:55 | PCM.POST.ANE ---
Anesthesia: Postop Eval I Current Vital Signs Temperature: 97.9 F Pulse Rate: 60 Blood Pressure: 111/55 Respiratory Rate: 16 Pulse Ox: 100 Oxygen Delivery Method: Room Air Assessment Airway patent: Yes Spontaneous unlabored respirations: Yes Mental status: Awake and Calm nausea: No Vomiting: No Anesthesia Complication: No Fluid Hydration Crystalloid volume administer (ml): 700 Total IV fluid infused: 700 Progress Note Anesthesia document: Postop Eval 1 completed: Yes
--- NOTE | 2024-07-10 14:05 | OP.EGD_ITS ---
Patient Name: Aviva English Procedure Date: 07/10/2024 12:48 PM Date of : 1950 Age: 74 Procedure: Upper GI endoscopy Indications: Dysphagia, Heartburn Providers: Matt Pope DO Medicines: Monitored Anesthesia Care Patient Profile: This is a 74 year old female. Refer to note in patient chart for documentation of history and physical. Patient has symptoms of chronic heartburn, chronic nausea and chronic odynophagia. Complications: No immediate complications. Procedure: Pre-Anesthesia Assessment: - Prior to the procedure, a History and Physical was performed, and patient medications and allergies were reviewed. The patient is competent. The risks and benefits of the procedure and the sedation options and risks were discussed with the patient. All questions were answered and informed consent was obtained. Patient identification and proposed procedure were verified by the physician in the pre-procedure area. Mental Status Examination: alert and oriented. Airway Examination: normal oropharyngeal airway and neck mobility. Respiratory Examination: clear to auscultation. CV Examination: normal. Prophylactic Antibiotics: The patient does not require prophylactic antibiotics. Prior Anticoagulants: The patient has taken no anticoagulant or antiplatelet agents. ASA Grade Assessment: II - A patient with mild systemic disease. After reviewing the risks and benefits, the patient was deemed in satisfactory condition to undergo the procedure. The anesthesia plan was to use monitored anesthesia care (MAC). Immediately prior to administration of medications, the patient was re-assessed for adequacy to receive sedatives. The heart rate, respiratory rate, oxygen saturations, blood pressure, adequacy of pulmonary ventilation, and response to care were monitored throughout the procedure. The physical status of the patient was re-assessed after the procedure. After obtaining informed consent, the endoscope was passed under direct vision. Throughout the procedure, the patient's blood pressure, pulse, and oxygen saturations were monitored continuously. The Colonoscope was introduced through the mouth, and advanced to the second part of duodenum. The upper GI endoscopy was accomplished without difficulty. The patient tolerated the procedure well. 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 The maximum longitudinal extent of these mucosal changes was 3 cm in length. Mucosa was biopsied with a cold forceps for histology in a targeted manner at intervals of 1 cm in the lower third of the esophagus. One specimen bottle was sent to pathology. Verification of patient identification for the specimen was done. Estimated blood loss was minimal. One benign-appearing, intrinsic moderate stenosis was found 25 to 28 cm from the incisors. The stenosis was traversed. A large hiatal hernia was present. Multiple large hyperplastic polyps with no bleeding and no stigmata of recent bleeding were found in the entire examined stomach. No gross lesions were noted in the duodenal bulb. 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 Biopsied. - Benign-appearing esophageal stenosis. - Large hiatal hernia. - Multiple gastric polyps. - No gross lesions in the duodenal bulb. Recommendation: - Discharge patient to home. - Resume previous diet. - Continue present medications. - Await pathology results. Procedure Code(s): --- Professional --- 89799, Esophagogastroduodenoscopy, flexible, transoral; with biopsy, single or multiple CPT copyright 2021 [employer]. All rights reserved. The codes documented in this report are preliminary and upon fourdrinier tender review may be revised to meet current compliance requirements. Matt Pope DO 07/10/2024 2:04:33 PM This report has been signed electronically. Number of Addenda: 0 Note Initiated On: 07/10/2024 12:48 PM
--- NOTE | 2024-07-10 14:05 | OP.CCLET_ITS ---
07/10/2024 Elaina Carvajal [address] [place] [address] Re : Upper GI endoscopy procedure for Aviva English Dear Dr. Carvajal This procedure was performed on Wednesday, July 10, 2024. 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 Biopsied. - Benign-appearing esophageal stenosis. - Large hiatal hernia. - Multiple gastric polyps. - No gross lesions in the duodenal bulb. Recommendations : - Discharge patient to home. - Resume previous diet. - Continue present medications. - Await pathology results. My findings are described in the full procedure note, which is enclosed. If I can be of further assistance, please feel free to contact me at . Sincerely, Matt Pope, 07/10/2024 2:04:33 PM This report has been signed electronically.
--- NOTE | 2024-07-10 14:08 | OP.CCLET_ITS ---
07/10/2024 Elaina Carvajal [address] [place] [address] Re : Colonoscopy procedure for Aviva English Dear Dr. Carvajal This procedure was performed on Wednesday, July 10, 2024. My impressions and recommendations are as follows: Impressions : - Hemorrhoids found on perianal exam. - Bleeding internal hemorrhoids. Banded. - Diverticulosis in the recto-sigmoid colon, in the sigmoid colon, in the descending colon and at the splenic flexure. - One 2 mm polyp in the ascending colon, removed with a jumbo cold forceps. Resected and retrieved. Recommendations : - Repeat colonoscopy in 3 years for surveillance. - Continue present medications. My findings are described in the full procedure note, which is enclosed. If I can be of further assistance, please feel free to contact me at . Sincerely, Matt Pope, 07/10/2024 2:08:12 PM This report has been signed electronically.
--- NOTE | 2024-07-10 14:08 | OP.COLON_ITS ---
Patient Name: Aviva English Procedure Date: 07/10/2024 1:16 PM Date of : 1950 Age: 74 Procedure: Colonoscopy Indications: Hematochezia Providers: Matt Pope DO Medicines: Monitored Anesthesia Care Patient Profile: This is a 74 year old female. Refer to note in patient chart for documentation of history and physical. Patient has symptoms of chronic heartburn, chronic nausea and chronic odynophagia. Last Colonoscopy: date unknown. Unable to locate last colonoscopy report. Complications: No immediate complications. Procedure: Pre-Anesthesia Assessment: - Prior to the procedure, a History and Physical was performed, and patient medications and allergies were reviewed. The patient is competent. The risks and benefits of the procedure and the sedation options and risks were discussed with the patient. All questions were answered and informed consent was obtained. Patient identification and proposed procedure were verified by the physician in the pre-procedure area. Mental Status Examination: alert and oriented. Airway Examination: normal oropharyngeal airway and neck mobility. Respiratory Examination: clear to auscultation. CV Examination: normal. Prophylactic Antibiotics: The patient does not require prophylactic antibiotics. Prior Anticoagulants: The patient has taken no anticoagulant or antiplatelet agents. ASA Grade Assessment: II - A patient with mild systemic disease. After reviewing the risks and benefits, the patient was deemed in satisfactory condition to undergo the procedure. The anesthesia plan was to use monitored anesthesia care (MAC). Immediately prior to administration of medications, the patient was re-assessed for adequacy to receive sedatives. The heart rate, respiratory rate, oxygen saturations, blood pressure, adequacy of pulmonary ventilation, and response to care were monitored throughout the procedure. The physical status of the patient was re-assessed after the procedure. After I obtained informed consent, the scope was passed under direct vision. Throughout the procedure, the patient's blood pressure, pulse, and oxygen saturations were monitored continuously. The Colonoscope was introduced through the anus and advanced to the cecum, identified by appendiceal orifice and ileocecal valve. The colonoscopy was performed without difficulty. The patient tolerated the procedure well. The quality of the bowel preparation was adequate. The ileocecal valve, appendiceal orifice, and rectum were photographed. Scope In: 1:18:04 PM Scope Withdrawal Time 0 hours 20 minutes 49 seconds Scope Out: 1:44:49 PM Total Procedure Duration Time 0 hours 26 minutes 45 seconds Findings: Hemorrhoids were found on perianal exam. Bleeding internal hemorrhoids were found during retroflexion. The hemorrhoids were large and Grade III (internal hemorrhoids that prolapse but require manual reduction). A hemorrhoid was isolated with endoscopy. The ligator was positioned over the hemorrhoid at the left lateral position. Suction was applied and one rubber band was placed over the hemorrhoid. This was checked to make certain that the muscularis was free of the band. Post-banding digital rectal exam showed band in good position. There were no complications. Multiple small and large-mouthed diverticula were found in the recto-sigmoid colon, sigmoid colon, descending colon and splenic flexure. A 2 mm polyp was found in the ascending colon. The polyp was sessile. The polyp was removed with a jumbo cold forceps. Resection and retrieval were complete. Verification of patient identification for the specimen was done. Estimated blood loss was minimal. Impression: - Hemorrhoids found on perianal exam. - Bleeding internal hemorrhoids. Banded. - Diverticulosis in the recto-sigmoid colon, in the sigmoid colon, in the descending colon and at the splenic flexure. - One 2 mm polyp in the ascending colon, removed with a jumbo cold forceps. Resected and retrieved. Recommendation: - Repeat colonoscopy in 3 years for surveillance. - Continue present medications. Procedure Code(s): --- Professional --- 80636, Colonoscopy, flexible; with band ligation(s) (eg, hemorrhoids) 41939, Colonoscopy, flexible; with biopsy, single or multiple CPT copyright 2021 [employer]. All rights reserved. The codes documented in this report are preliminary and upon pocket builder review may be revised to meet current compliance requirements. Matt Pope DO 07/10/2024 2:08:12 PM This report has been signed electronically. Number of Addenda: 0 Note Initiated On: 07/10/2024 1:16 PM
[2024-07-10] MEDS: Morphine 4 MG/ML Syringe IV (14:09)
[2024-07-10] MEDS: Lidocaine Jelly 2% 20 ML Syringe (URO-JET) 1 APPLIC TOPICAL (14:12)
--- NOTE | 2024-07-10 17:37 | PCM.POSTANE2 ---
Anesthesia Postop Eval I Sum Postop Eval Completion status Anesthesia document: Postop Eval 1 completed: Yes Anesthesia Postop Eval I Summary Anesthesia Postop Eval I Summary: Anesthesia Postop Eval I: Assessment Summary Airway patent Yes 07/10/24 13:55 [email or web address] Spontaneous unlabored Yes 07/10/24 13:55 [email or web address] respirations Mental status Awake,Calm 07/10/24 13:55 [email or web address] nausea No 07/10/24 13:55 [email or web address] Vomiting No 07/10/24 13:55 [email or web address] Anesthesia Postop Eval I: Fluid Summary Crystalloid volume administer 700 07/10/24 13:55 [email or web address] (ml) Colloids volume administered ( ml) Blood Product volume administered (ml) Total IV fluid infused 700 07/10/24 13:55 [email or web address] Anesthesia Postop Eval I: Summary Notes Anesthesia Complication No 07/10/24 13:55 [email or web address] Anesthesia Complication Comment: Post-operative progress note Anesthesia: Postop Eval II Evaluation Mental status: Awake and Calm Pain Level: 0 nausea: No Vomiting: No Complications Anesthesia Complication: No
== END 2024-07-10 15:01 | disposition home or self-care (01) ==
LOC: EN 11:29 → AC 11:31
PROVIDERS: PCP Internal Medicine; Referring Provider Internal Medicine; Visit Provider Internal Medicine Gastroenterology
PROC: 0DJD8ZZ Inspection of Lower Intestinal Tract, Via Natural or Artificial Opening Endoscopic (ICD-10-PCS; CPT 45378; principal; 2024-07-10 12:25)
DX: K22.70 Barrett's esophagus without dysplasia (principal); K44.9 Diaphragmatic hernia without obstruction or gangrene; K31.7 Polyp of stomach and duodenum; D12.2 Benign neoplasm of ascending colon; K22.2 Esophageal obstruction; K64.2 Third degree hemorrhoids; K57.30 Diverticulosis of large intestine without perforation or abscess without bleeding; E66.3 Overweight; I10 Essential (primary) hypertension; E55.9 Vitamin D deficiency, unspecified; Z79.899 Other long term (current) drug therapy
CPT/HCPCS: 45380; 45398; 43239; 88305; 88312; 88341; 88342; J7120; J2405

== ENCOUNTER → 2025-01-25 | Day surgery (SDC) | payer MEDICARE, SELFPAY ==
[2025-01-25] MEDS: Lidocaine Jelly 2% 20 ML Syringe (URO-JET) 1 APPLIC (10:10)
[2025-01-25 10:26] VITALS: BP 170/59; PULSE 82; RESP 18; TEMP 36.8; O2SAT 100
== END | disposition home or self-care (01) ==
LOC: EN 09:43
PROVIDERS: PCP Internal Medicine; Referring Provider Internal Medicine Gastroenterology; Visit Provider Internal Medicine Gastroenterology
PROC: F00ZJWZ Instrumental Swallowing and Oral Function Assessment using Swallowing Equipment (ICD-10-PCS; CPT 43235; principal; 2025-01-25 09:55)
DX: K21.9 Gastro-esophageal reflux disease without esophagitis (principal); K44.9 Diaphragmatic hernia without obstruction or gangrene
CPT/HCPCS: 91010

== ENCOUNTER → 2025-02-15 | Outpatient (CLI) | payer MEDICARE, SELFPAY ==
--- NOTE | 2025-02-15 12:29 | NM_ITS ---
PROCEDURE: GASTRIC EMPTYING STUDY 02/15/2025 REASON FOR EXAM: GERD COMPARISON: None. TECHNIQUE: The patient ingested a standard meal of oatmeal and technetium labeled sulfur colloid, and water. There was no vomiting postprandially. Anterior and posterior planar images of the upper abdomen were obtained for 1 minute immediately following the meal at 1h, 2h and 4h if more than 10% of the activity persisted within the stomach. Regions of interest were drawn, and a geometric mean was used to calculate a [id number]. RADIOPHARMACEUTICAL: 1.1 mCi of technetium labeled sulfur colloid. FINDINGS: Percent activity remaining in stomach: 1 hour 26 % (normal 37-90%) NM/Gastric Emptying Study IMPRESSION: Normal gastric emptying examination. Reading Location: [place] [address]
== END | disposition home or self-care (01) ==
LOC: NM 12:25
PROVIDERS: PCP Internal Medicine; Referring Provider Internal Medicine Gastroenterology; Visit Provider Internal Medicine Gastroenterology
DX: K21.9 Gastro-esophageal reflux disease without esophagitis (principal)
CPT/HCPCS: 78264; A9541

== ENCOUNTER → 2025-03-20 | Outpatient (CLI) | payer MEDICARE, SELFPAY ==
--- NOTE | 2025-03-20 14:52 | CT_ITS ---
PROCEDURE: ABDOMEN WITH IV CONTRAST 03/20/2025 REASON FOR EXAM: HIATAL HERNIA TECHNIQUE: Abdomen CT with intravenous contrast. Multiplanar and multisequence images were obtained. One or more dose reduction techniques were used (e.g., Automated exposure control, adjustment of the mA and/or kV according to patient size, use of iterative reconstruction technique. PATIENT PREPARATION: Per protocol ORAL CONTRAST TYPE: None. CONTRAST: Isovue-300 VOLUME: 100 mL RADIATION DOSE SUMMARY: CTDlvol: 14.5 mGy DLP: 859.02 mGycm COMPARISON: None FINDINGS: Lung bases: Lung bases are clear. Liver: Diffuse fatty infiltration. Gallbladder: Unremarkable. Spleen: Normal size. Pancreas: Diffuse fatty atrophy. Adrenals: Unremarkable Kidneys: Normal renal sizes. No hydronephrosis. Bowel: . Large hiatal hernia. Lymph nodes: Unremarkable. Vasculature: Minimal atherosclerotic plaque. Peritoneum / Retroperitoneum: Unremarkable Bones: Degenerative changes of the spine. Almost complete collapse of the T12 vertebrae. Anterior listhesis of L5 on S1 due to facet joint osteoarthritis. CT/Abdomen WITH IV Contrast IMPRESSION: Fatty infiltration of the liver. Large hiatal hernia. Complete collapse of the T12 vertebrae. OVERALL FINAL ASSESSMENT: . LI-RADS is not meant to be used in patients <18 years or patients with cirrhosi s due to congenital hepatic fibrosis or due to vascular disorders, because these patients have a lower chance of developing HC C. Reading Location: [place] [address]
== END | disposition home or self-care (01) ==
LOC: CT 14:51
PROVIDERS: PCP Internal Medicine; Referring Provider Surgery; Visit Provider Surgery
DX: K44.9 Diaphragmatic hernia without obstruction or gangrene (principal)
CPT/HCPCS: 74160; Q9967